=== PATIENT | male | born 1950 | race Caucasian/White ===

== ENCOUNTER 2018-01-15 15:00 | Outpatient (RCR) | payer OTHER | END 2018-01-27 | disposition home or self-care (01) | LOC: PTY 15:00 | PROVIDERS: ATTEND Internal Medicine | DX: M72.2 Plantar fascial fibromatosis (principal); M79.672 Pain in left foot ==

== ENCOUNTER 2018-01-29 15:40 | Outpatient (RCR) | payer OTHER | END 2018-02-26 | disposition home or self-care (01) | LOC: PTY 15:40 | DX: M72.2 Plantar fascial fibromatosis (principal); M79.672 Pain in left foot; I69.854 Hemiplegia and hemiparesis following other cerebrovascular disease affecting left non-dominant side ==

== ENCOUNTER 2018-03-01 13:26 | Outpatient (RCR) | payer OTHER | END 2018-03-29 | disposition home or self-care (01) | LOC: PTY 13:26 | DX: M72.2 Plantar fascial fibromatosis (principal); M79.672 Pain in left foot ==